=== PATIENT | female | born 1950 | race Caucasian/White ===

== ENCOUNTER 2017-08-16 21:54 | Emergency (ER) | payer OTHER ==
[2017-08-16 22:03] VITALS: BP 144/84; PULSE 78; TEMP 98; BMI 23.0
--- NOTE | 2017-08-16 22:44 | PDOC ---
History of Present Illness - General Chief Complaint: Injury Stated Complaint: LEFT FOOT INJURY Time Seen by Provider: 08/16/17 21:56 - History of Present Illness Initial Comments: This 66-year-old woman with a history of irritable bowel syndrome and right foot fracture presents with injury to her left foot. Approximately 5 hours prior to presentation, as patient was visiting family on [place], she turned her left ankle/foot as she was walking over "lip" of a door frame. Patient had immediate pain/swelling in the lateral aspect of the left midfoot. She traveled back from [place] and presented here. The patient states that she has had a foot fracture in the past and the pain / swelling in this injury feels worse. Patient did not fall and no other injury sustained. Past History - Past Medical History Allergies/Adverse Reactions: Allergies Allergy/AdvReac Type Severity Reaction Status Date / Time Sulfa (Sulfonamide Allergy Unknown Verified 08/16/17 21:56 Antibiotics) Home Medications: Ambulatory Orders Dicyclomine HCl [Bentyl] 10 mg PO QID 08/16/17 Tramadol HCl/Acetaminophen [Ultracet] 1 each PO Q8H PRN #20 tablet MDD 3 tabs COPD: No GI Disorders: Yes (IBS) Other medical history: RIGHT FOOT FX, - Suicide/Smoking/Psychosocial Hx Smoking History: Never smoked Hx Alcohol Use: Yes (SOCIAL) Drug/Substance Use Hx: No Substance Use Type: None Review of Systems - Review of Systems Able to Perform ROS?: Yes Comments:: 12 point review of systems is negative except for what is noted in the history of present illness *Physical Exam - Vital Signs Last Vital Signs Temp Pulse Resp BP Pulse Ox 98.0 F 78 16 144/84 96 08/16/17 21:55 08/16/17 21:55 08/16/17 21:55 08/16/17 21:55 08/16/17 21:55 - Physical Exam Comments: GENERAL: Adult female, alert and oriented 3, no acute distress HEAD: Normal with no signs of trauma. EYES: PERRLA, EOMI, sclera anicteric, conjunctiva clear. ENT: Ears normal, nares patent, oropharynx clear without exudates. Dry mucous membranes. NECK: Normal range of motion, supple without lymphadenopathy, JVD, or masses. LUNGS: Breath sounds equal, clear to auscultation bilaterally. No wheezes, and no crackles. HEART:Regular rate and rhythm, normal S1 and S2 without murmur, rub or gallop. ABDOMEN:.normal bowel sounds No guarding,tenderness or rebound.No masses No distention. EXTREMITIES: Left lower extremity .-Moderate edema/tenderness/faint ecchymosis lateral aspect of left midfoot No point tenderness or deformity at base of fifth metatarsal Distal foot is warm and dry with excellent capillary refill No edema/tenderness of medial or lateral ankle Remainder of the extremity exam is normal MUSCULOSKELETAL: Back non-tender to palpation, no CVA tenderness SKIN: Warm, Dry, normal turgor, no rashes or lesions noted. Progress Note - Progress Note Progress Note: Left foot x-ray preliminary reading: No evidence of acute fracture or dislocation Patient states that her first x-ray of right foot when it was fractured was also normal; she was seen by orthopedist after pain and swelling persisted and fracture was diagnosed with second x-ray at that time. Patient was given a hard sole postop shoe for ambulation for the next 10 days. She is been advised to elevate and ice the area as much as possible for the next 2 days. Patient states that she cannot tolerate"strong" nonsteroidal anti- inflammatory medications secondary to sensitive stomach and history of C. difficile colitis in the last year( although she tolerates OTC ibuprofen.) Prescription for Ultracet transmitted to the patient's pharmacy Patient asked for referral for orthopedist and was given referral information for Dr. Bolivar's group *DC/Admit/Observation/Transfer Diagnosis at time of Disposition: Sprain of left foot Qualifiers: Encounter type: initial encounter Qualified Code(s): S93.602A - Unspecified sprain of left foot, initial encounter - Discharge Dispostion Disposition: HOME Condition at time of disposition: Stable - Prescriptions Prescriptions: Tramadol HCl/Acetaminophen [Ultracet] 1 each PO Q8H PRN #20 tablet MDD 3 tabs PRN Reason: Moderate Pain - Referrals Referrals: Ángela Briseno [Primary Care Provider] - Harris Bolivar MD [Staff Physician] - 1 week - Patient Instructions Printed Discharge Instructions: DI for Foot Sprain Additional Instructions: Elevate/ice to left foot as much as possible for the next 2 days Use postop shoe for ambulation for the next 10 days Ibuprofen as needed for [id number] pain Ultracet up to 3 times a day as needed for moderate to severe pain Follow-up with Dr. Bolivar orthopedic group if pain/swelling persists - Post Discharge Activity
== END 2017-08-16 23:43 | disposition home or self-care (01) ==
LOC: FER 21:54
DX: S93.602A Unspecified sprain of left foot, initial encounter (principal); W22.01XA Walked into wall, initial encounter; Y93.89 Activity, other specified; Y92.9 Unspecified place or not applicable; K58.9 Irritable bowel syndrome, unspecified
CPT/HCPCS: 73630-TC-LT; 99281-25